=== PATIENT | male | born 1950 | race Caucasian/White ===

== ENCOUNTER → 2018-02-06 07:56 | Outpatient (CLI) | payer OTHER, SELFPAY ==
--- NOTE | 2018-02-06 08:34 | RAD_ITS ---
STUDY: X-RAY - ORBITS REASON FOR EXAM: Male, 67 years old. This study is being performed as a clearance examination for exclusion of orbital metal, prior to the performance of an MRI examination. TECHNIQUE: 2 view(s) of the orbits were obtained. COMPARISON: None. FINDINGS: Normal bilateral orbits without a metallic orbital foreign body. Normal visualized facial bones. Normal paranasal sinuses. The soft tissue structures are unremarkable. RAD/Orbits for Foreign Body IMPRESSION: No demonstrated metallic orbital foreign body. The patient is cleared for an MRI examination. Electronically Signed: Sina Edouard MD at 8:54 EDT Tel [phone], Service support ,
--- NOTE | 2018-02-06 13:00 | MRI_ITS ---
STUDY: MRI BRAIN WITH AND WITHOUT CONTRAST REASON FOR EXAM: Male, 67 years old. Right arm weakness TECHNIQUE: Standardized multiplanar fat and water weighted pulse sequences were obtained. 8 ml of Gadavist contrast material was administered intravenously for the contrast portion of the examination. COMPARISON: None. FINDINGS: Normal size of the ventricles and extra-axial spaces for the patient's age. Minor periventricular white matter ischemic change without evidence for acute infarct. Normal bilateral basal ganglia. Normal thalami. There is no extra-axial fluid accumulation. Normal flow voids within the major intracranial circulation suggesting patency by spin echo criteria. Normal venous enhancement. There is no enhancing intra-axial or extra-axial abnormality. Normal sella turcica, pituitary gland, infundibular stalk, optic chiasm and hypothalamus. Normal tectal plate and pineal gland. Normal midbrain, tammy and medulla. Normal cerebellum. Normal basal cisterns. Normal bilateral temporal bones. Normal bilateral internal auditory canals. No demonstrated orbital abnormality, within the constraints of a routine brain study. Normal visualized paranasal sinuses. Normal calvarium and skull base. Normal visualized soft tissue structures. Normal visualized upper cervical spine. MRI/Brain W/WO Contrast IMPRESSION: Minor periventricular white matter ischemic changes without evidence for acute infarct. No enhancing lesions are noted following contrast demonstration. Electronically Signed: Benton Blackwell MD at 23:36 EDT , Service support ,
--- NOTE | 2018-02-06 13:30 | CT_ITS ---
STUDY: CTA NECK WITH CONTRAST REASON FOR EXAM: Male, 67 years old. Abnormal carotid ultrasound. History of hypertension and tonsillectomy. RADIATION DOSAGE (If Supplied By Facility): CTDIvol = ( ) mGy, DLP = ( ) mGycm TECHNIQUE: CT angiography with multi-detector data acquisition was performed from the aortic arch to the skull base following intravenous administration of 100 ml of Isovue-370 contrast. MIP images were reconstructed from the axial data set. Post-processing of the angiographic images was performed, with multiplanar reformation and 3D reconstruction. Individualized dose optimization techniques were used for this CT. COMPARISON: None. FINDINGS: AORTIC ARCH: There is ulcerated and irregular atherosclerotic plaque formation of the aortic arch without a hemodynamically significant stenosis. 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 There is a bovine origin of the great vessels with a common origin of the brachiocephalic and left common carotid artery. Normal origin of the left subclavian artery. RIGHT CAROTID ARTERIES: There is minor calcified atherosclerotic plaque formation of the common carotid artery, but without a hemodynamically significant stenosis. There is mild to moderate atherosclerotic plaque formation without significant narrowing of the right carotid bulb. There is partially calcified atherosclerotic plaque formation of the origin of the right internal carotid artery with an estimated stenosis of greater than 70%. Above this, the visualized cervical portion of the right internal carotid artery is widely patent. There is mild atherosclerotic plaque formation of the origin of the right external carotid artery with less than 25% cross sectional diameter stenosis. LEFT CAROTID ARTERIES: There is minor calcified atherosclerotic plaque formation of the common carotid artery, but without a hemodynamically significant stenosis. There is mild atherosclerotic plaque formation with minimal narrowing of the left carotid bulb. There is irregular, ulcerated, partially calcified atherosclerotic plaque formation of the origin of the left internal carotid artery with an estimated stenosis of 50-69% stenosis. Above this level, the visualized cervical portion of the left internal carotid artery is widely patent. Normal origin of the left external carotid artery (ECA). VERTEBRAL ARTERIES: There is minor narrowing at the takeoff of the right vertebral artery (series 217 image 28). Mild to moderate smooth narrowing of the origin of the left vertebral artery (series 218 image 26). The cervical segments are otherwise widely patent. CT/CTA Neck W/WO Contrast IMPRESSION: 1. Partially calcified atherosclerotic plaque at the right internal carotid artery origin with greater than 70% stenosis. 2. Partially calcified, irregular, ulcerated plaquing at the left internal carotid origin with 50-69% diameter stenosis. 3. Mild ostial narrowing of the otherwise widely patent bilateral vertebral arteries. Electronically Signed: Varinder Sultana MD at 13:58 EDT , Service support ,
--- NOTE | 2018-02-07 11:47 | LEAS ---
Arterial Study - Arterial Study Arterial Study: Record number: [id number] next Date of scan 02/06/[address] Friend History: Patient with claudication type symptoms Interpretation: Right lower extremity with pulsatile waveform noted from the thigh through the calf ankle up through the digits severe peaked waveforms noted from the low thigh and the calf. Duplex does show triphasic flow at the ankle with an DANI 1.0 to the posterior tibial 0.91 and the dorsalis pedis next Left lower extremity with pulsatile flow from the thigh down to the calf ankle digits again peaked waveforms noted throughout the low thigh and calf duplex does show triphasic flow at the vessels with an DANI 1.16 in the posterior tibial and 1.1 and the dorsalis pedis Impression: 1. No evidence of significant arterial occlusive disease at rest of the right lower extremity with an DANI 1.02 and triphasic flow 2. No evidence of significant arterial occlusive disease at rest of the left lower extremity with DANI 1.16 and triphasic flow
== END ==
PROVIDERS: Family Provider Family Medicine; PCP Family Medicine; Visit Provider Surgery Vascular Surgery
DX: I70.213 Atherosclerosis of native arteries of extremities with intermittent claudication, bilateral legs (principal); I65.23 Occlusion and stenosis of bilateral carotid arteries; Z86.73 Personal history of transient ischemic attack (TIA), and cerebral infarction without residual deficits
CPT/HCPCS: 70030; 70498; 70553; 93923; A9585; Q9967; A4216

== ENCOUNTER → 2018-03-08 09:36 | Outpatient (CLI) | payer OTHER, SELFPAY ==
--- NOTE | 2018-03-08 09:36 | DT_ITS ---
This patient was seen during an EMR downtime March 05, 2018 - March 12, 2018. This patient may have a combination of paper and electronic documentation or all paper documentation. All documentation is viewable within the e-chart portion of [facility] for each patient visit.
--- NOTE | 2018-03-08 09:39 | STE_ITS ---
Reason For Study: EMBOLI/PRE OP Stress Results Protocol: Edgardo Protocol Maximum Predicted HR: 154 bpm Target HR: 131 bpm% Max imum Predicted HR: 100 % DurationHeart Rate Stage (mm:ss) (bpm) BP BASELINE 88 140/90 STAGE 1 3:00 13 1 168/88 STAGE 2 2:01 15 4 168/98 RECOVERY 108 160/8 8 Stress Duration: 5:01 mm:ss Maximum Stress HR: 154 bpm Baseline Echocardiogram Findings The estimated ejection fraction is 65 %. Stress Echo Wall motion Data Resting WMIntermediate WMStress WM Resting Wall Motion Wall Motion Stress Ejection Fraction 65 %. Ejection Fraction 75 %. EKG Data The baseline ECG displays normal sinus rhythm. NSR, WITH NO ISCHEMIA. Patient Safety REASON FOR TERMINATION: LEG PAIN/DYSPNEA. Interpretation Summary 1) NORMAL ADEQUATE TREADMILL ECHO 2) NO ARRYTHMIA 3) NORMAL BLOOD RESPONSE TO EXERCISE 4) AVERAGE EXERCISE CAPACITY FOR AGE 5) FINAL LVEF=75% The estimated ejection fraction is 65 %. Ordering Physician: Artie Horner MD Referring Physician: Artie Horner MD Performed By: Ortiz Jarrett RCS
== END ==
PROVIDERS: Family Provider Family Medicine; PCP Family Medicine; Visit Provider Internal Medicine Cardiovascular Disease
DX: Z01.810 Encounter for preprocedural cardiovascular examination (principal); I65.23 Occlusion and stenosis of bilateral carotid arteries; Z86.73 Personal history of transient ischemic attack (TIA), and cerebral infarction without residual deficits; F17.200 Nicotine dependence, unspecified, uncomplicated; I10 Essential (primary) hypertension; E78.1 Pure hyperglyceridemia
CPT/HCPCS: 93017; 93350

== ENCOUNTER → 2018-03-26 08:53 | Outpatient (CLI) | payer OTHER, SELFPAY ==
--- NOTE | 2018-03-26 08:53 | ECHOD_ITS ---
Reason For Study: PRE-OP, EMBOLI Procedure This was a 2D Doppler, Color Flow transthoracic echocardiogram. Exam performed in department. Left Ventricle Normal size and thickness. The estimated ejection fraction is 65 %. Stage 1 diastolic dysfunction. No regional wall motion abnormalities noted. Right Ventricle Normal size and thickness. A moderator band is seen in the right ventricle. Normal systolic function. Atria Normal left atrium. Normal right atrium. Normal atrial septum. Mitral Valve The mitral valve is structurally normal. No prolapse or stenosis seen. Mild (1+) mitral valve insufficiency. Tricuspid Valve Normal tricuspid valve. Unable to estimate RV systolic pressure due to inadequate jet, pulmonary artery pressure probably normal. Aortic Valve Normal aortic valve. Trisinus/trileaflet aortic valve. Pulmonic Valve Normal pulmonic valve. Trivial eccentric pulmonic valve insufficiency. Great Vessels Normal aortic root. Normal arch. Normal inferior vena cava. Inferior vena cava collapse with sniff. Pericardium/Pleural No pericardial effusion. MMode/2D Measurements & Calculations LVIDd: 4.9 cm IVSd: 0.95 cm Ao root diam: 3.6 cm LVIDs: 3.3 cm LVPWd: 1.0 cm LA dimension: 3.5 cm RVDd: 2.7 cm FS: 31.2 % LAV(MOD-bp): 34.9 ml LVAd ap4: 27.2 cm2 SV(MOD-sp4): 40.2 ml LAV(MOD-bp) Indexed: 18.6 ml/m2 EDV(MOD-sp4): 71.9 ml LAV(MOD-sp2): 36.9 ml EDV(sp4-el): 75.1 ml LAV(MOD-sp4): 31.7 ml LVAs ap4: 15.9 cm2 ESV(MOD-sp4): 31.7 ml ESV(sp4-el): 31.3 ml EF(MOD-sp4): 55.9 % EF(sp4-el): 58.4 % SV(sp4-el): 43.8 ml LA A4 area: 13.8 cm2 RA A4 area: 14.8 cm2 Time Measurements MV dec time: 0.22 sec Doppler Measurements & Calculations MV E max lane: 84.9 cm/sec Lat Peak E' Lane: 8.1 cm/sec Med Peak E' Lane: 6.8 cm/sec MV A max lane: 99.1 cm/sec E/E' lat: 10.5 E/E' med: 12.5 MV E/A: 0.86 Ao V2 max: 105.0 cm/sec LV V1 max: 98.9 cm/sec PA V2 max: 93.9 cm/sec Ao max P.4 mmHg LV V1 max P.9 mmHg Interpretation Summary The estimated ejection fraction is 65 %. Stage 1 diastolic dysfunction. Mild (1+) mitral valve insufficiency. Unable to estimate RV systolic pressure due to inadequate jet, pulmonary artery pressure probably normal. There is no comparison study available. Ordering Physician: Artie Horner Referring Physician: IRENE AGUILAR Performed By: Toña Schmitt RDCS
== END ==
PROVIDERS: Family Provider Family Medicine; PCP Family Medicine; Visit Provider Internal Medicine Cardiovascular Disease
DX: Z01.810 Encounter for preprocedural cardiovascular examination (principal); E78.1 Pure hyperglyceridemia; F17.200 Nicotine dependence, unspecified, uncomplicated; I65.23 Occlusion and stenosis of bilateral carotid arteries; I10 Essential (primary) hypertension; Z86.73 Personal history of transient ischemic attack (TIA), and cerebral infarction without residual deficits
CPT/HCPCS: 93306

== ENCOUNTER → 2018-11-01 12:56 | Outpatient (CLI) | payer OTHER, SELFPAY ==
[2018-10-15 16:05] VITALS: BMI 28.3
--- NOTE | 2018-11-01 12:59 | CDU_ITS ---
Reason For Study: Carotid stenosis Rt. Velocities/BP Lt. Velocities/BP Prox CCA 70.9/24.6 cm/sec. Prox CCA 75.5/28.7 cm/sec. Mid CCA 75.6/28.1 cm/sec. Mid CCA 83.3/32.2 cm/sec. Dist CCA 71.5/25.2 cm/sec. Dist CCA 63.9/25.2 cm/sec. Prox ICA 355/138 cm/sec. Prox ICA 61.0/25.8 cm/sec. Mid ICA 83.8/28.1 cm/sec. Mid ICA 83.3/38.7 cm/sec. Dist ICA 76.8/25.8 cm/sec. Dist ICA 74.5/34.0 cm/sec. Rt. ICA/CCA = 4.7. Lt. ICA/CCA = 1.0. Prox ECA 113.0/28.7 cm/sec. Prox ECA 79.7/23.5 cm/sec. Rt. Vert. 39.3/18.2 cm/sec. Lt. Vert. 43.4/19.3 cm/sec. Right Extracranial There is heterogeneous, irregular atherosclerotic plaque noted in the right common carotid artery. There is heterogeneous, irregular atherosclerotic plaque noted in the right internal carotid artery. There is heterogeneous, irregular atherosclerotic plaque noted in the right external carotid artery. Antegrade flow is noted in the right vertebral artery. Left Extracranial There is heterogeneous, irregular atherosclerotic plaque noted in the left common carotid artery. There is homogeneous, smooth atherosclerotic plaque noted in the left internal carotid artery. There is intimal thickening but no significant atherosclerotic plaque noted in the left external carotid artery. Antegrade flow is noted in the left vertebral artery. Procedure Carotid Duplex [id number]. Exam performed in department. Interpretation Summary Severe (>70%) stenosis right extracranial internal carotid. Mild (<50%) stenosis left extracranial internal carotid. Flow within the vertebral arteries is antegrade bilaterally. Ordering Physician: Kal Friend Referring Physician: Jamal Lopez MD Performed By: Shannan Boyd RVT
== END ==
PROVIDERS: Family Provider Family Medicine; PCP Family Medicine; Referring Provider Surgery Vascular Surgery; Visit Provider Surgery Vascular Surgery
DX: I65.23 Occlusion and stenosis of bilateral carotid arteries (principal)
CPT/HCPCS: 93880

== ENCOUNTER → 2019-08-30 13:51 | Outpatient (CLI) | payer OTHER, SELFPAY ==
[2019-05-13 15:43] VITALS: BMI 27.6
--- NOTE | 2019-08-30 13:53 | CDU_ITS ---
Reason For Study: CAROLE Rt. Velocities/BP Lt. Velocities/BP Prox CCA 87/28 cm/sec. Prox CCA 93/38 cm/sec. Mid CCA 75/23 cm/sec. Mid CCA 61/25 cm/sec. Dist CCA 76/27 cm/sec. Dist CCA 61/26 cm/sec. Prox ICA 51/19 cm/sec. Prox ICA 50/20 cm/sec. Mid ICA 59/22 cm/sec. Mid ICA 71/34 cm/sec. Dist ICA 68/28 cm/sec. Dist ICA 72/30 cm/sec. Rt. ICA/CCA = .8. Lt. ICA/CCA = .8. Prox ECA 128/28 cm/sec. Prox ECA 93/23 cm/sec. Rt. Vert. 49/21 cm/sec. Lt. Vert. 35/14 cm/sec. Right Extracranial There is heterogeneous, irregular atherosclerotic plaque noted in the right common carotid artery. There is heterogeneous, smooth atherosclerotic plaque noted in the right internal carotid artery. s/p Rt . There is homogeneous, smooth atherosclerotic plaque noted in the right external carotid artery. Antegrade flow is noted in the right vertebral artery. Left Extracranial There is heterogeneous, irregular atherosclerotic plaque noted in the left common carotid artery. There is heterogeneous, smooth atherosclerotic plaque noted in the left common carotid artery. There is heterogeneous, smooth atherosclerotic plaque noted in the left internal carotid artery. s/p Left . There is homogeneous, smooth atherosclerotic plaque noted in the left external carotid artery. Antegrade flow is noted in the left vertebral artery. Procedure Carotid Duplex [id number]. Exam performed in department. Interpretation Summary Mild (<50%) stenosis right extracranial internal carotid. Mild (<50%) stenosis left extracranial internal carotid. Flow within the vertebral arteries is antegrade bilaterally. Ordering Physician: Kal Friend Referring Physician: IRENE AGUILAR Performed By: Kamla Bee, MELODIE, RVT
== END ==
PROVIDERS: Family Provider Family Medicine; PCP Family Medicine; Referring Provider Surgery Vascular Surgery; Visit Provider Surgery Vascular Surgery
DX: I65.23 Occlusion and stenosis of bilateral carotid arteries (principal); Q89.9 Congenital malformation, unspecified; I10 Essential (primary) hypertension; Z86.73 Personal history of transient ischemic attack (TIA), and cerebral infarction without residual deficits
CPT/HCPCS: 93880

== ENCOUNTER → 2020-11-02 09:19 | Outpatient (CLI) | payer OTHER, SELFPAY ==
[2019-11-14 15:43] VITALS: BMI 28.5
--- NOTE | 2020-11-02 09:25 | CDU_ITS ---
Reason For Study: CAROTID STENOSIS Rt. Velocities/BP Lt. Velocities/BP Prox CCA 102/32 cm/sec. Prox CCA 91/34 cm/sec. Mid CCA 80/25 cm/sec. Mid CCA 87/35 cm/sec. Dist CCA 90/21 cm/sec. Dist CCA 74/30 cm/sec. Prox ICA 57/12 cm/sec. Prox ICA 60/18 cm/sec. Mid ICA 64/29 cm/sec. Mid ICA 68/30 cm/sec. Dist ICA 56/23 cm/sec. Dist ICA 68/34 cm/sec. Rt. ICA/CCA = .7. Lt. ICA/CCA = .8. Prox ECA 110/29 cm/sec. Prox ECA 77/21 cm/sec. Rt. Vert. 42/13 cm/sec. Lt. Vert. 27/10 cm/sec. Right Extracranial There is heterogeneous, irregular atherosclerotic plaque noted in the right common carotid artery. There is heterogeneous, smooth atherosclerotic plaque noted in the right internal carotid artery. There is homogeneous, smooth atherosclerotic plaque noted in the right external carotid artery. Antegrade flow is noted in the right vertebral artery. Left Extracranial There is heterogeneous, irregular atherosclerotic plaque noted in the left common carotid artery. There is heterogeneous, irregular atherosclerotic plaque noted in the left internal carotid artery. There is homogeneous, smooth atherosclerotic plaque noted in the left external carotid artery. Antegrade flow is noted in the left vertebral artery. Procedure Carotid Duplex [id number]. Exam performed in department. Interpretation Summary Mild (<50%) stenosis right extracranial internal carotid. Mild (<50%) stenosis left extracranial internal carotid. Flow within the vertebral arteries is antegrade bilaterally. Ordering Physician: Kal Friend Referring Physician: Kal Friend Performed By: Kamla Bee, RDCS, RVT
== END ==
PROVIDERS: PCP Family Medicine; Referring Provider Surgery Vascular Surgery; Visit Provider Surgery Vascular Surgery
DX: I65.23 Occlusion and stenosis of bilateral carotid arteries (principal); Z86.73 Personal history of transient ischemic attack (TIA), and cerebral infarction without residual deficits
CPT/HCPCS: 93880

== ENCOUNTER → 2021-01-27 15:32 | Outpatient (CLI) | payer OTHER, SELFPAY ==
[2021-01-27 14:58] VITALS: BMI 28.5
[2021-01-27 17:44] LABS: AST(SGOT) 21 U/L (15-37); Alanine Aminotransfer ALT/SGPT 29 U/L (16-61); Albumin, Serum 3.8 g/dL (3.2-5.0); Alkaline Phosphatase 76 U/L (45-117); Cholesterol 135 mg/dL (200); Globulin 3.6 g/dL (2.2-4.2); High Density Lipoprotein 38 mg/dL; Protein, Total 7.4 g/dL (6.4-8.2); Triglycerides 267 mg/dL; Very Low Density Lipoprotein 53 mg/dL (5-40)
== END ==
PROVIDERS: Physician Assistant Medical; PCP Family Medicine; Referring Provider Internal Medicine Cardiovascular Disease; Visit Provider Internal Medicine Cardiovascular Disease
DX: E78.1 Pure hyperglyceridemia (principal); I10 Essential (primary) hypertension; I65.23 Occlusion and stenosis of bilateral carotid arteries
CPT/HCPCS: 36415; 80061; 80076

== ENCOUNTER → 2022-04-15 | Outpatient (CLI) | payer OTHER, SELFPAY ==
--- NOTE | 2022-04-15 10:04 | CDU_ITS ---
Reason For Study: CAROTID STENOSIS Rt. Velocities/BP Lt. Velocities/BP Prox CCA 76.0/22.6 cm/sec. Prox CCA 61.3/24.7 cm/sec. Mid CCA 77.3/22.6 cm/sec. Mid CCA 46.5/18.6 cm/sec. Dist CCA 72.1/20.0 cm/sec. Dist CCA 53.5/17.7 cm/sec. Prox ICA 53.1/15.7 cm/sec. Prox ICA 48.5/15.4 cm/sec. Mid ICA 52.0/15.7 cm/sec. Mid ICA 55.1/24.8 cm/sec. Dist ICA 61.9/26.7 cm/sec. Dist ICA 69.2/28.6 cm/sec. Rt. ICA/CCA = 1.23. Lt. ICA/CCA = 1.30. Prox ECA 72.1/18.6 cm/sec. Prox ECA 93.8/25.8 cm/sec. Rt. Vert. 31.7/11.6 cm/sec. Lt. Vert. 31.5/10.7 cm/sec. Right Extracranial There is heterogeneous, irregular atherosclerotic plaque noted in the right common carotid artery. There is heterogeneous, irregular atherosclerotic plaque noted in the right internal carotid artery. There is heterogeneous, smooth atherosclerotic plaque noted in the right external carotid artery. Antegrade flow is noted in the right vertebral artery. Left Extracranial There is heterogeneous, irregular atherosclerotic plaque noted in the left common carotid artery. There is heterogeneous, irregular atherosclerotic plaque noted in the left internal carotid artery. There is heterogeneous, irregular atherosclerotic plaque noted in the left external carotid artery. Antegrade flow is noted in the left vertebral artery. Procedure Carotid Duplex [id number]. This is a Carotid Duplex examination using B-mode, color flow and specral Doppler. The exam was of adequate technical quality. Exam performed in department. VL/Carotid Duplex Ultrasound Interpretation Summary Mild (<50%) stenosis right extracranial internal carotid. Normal left extracran ial internal carotid. Flow within the vertebral arteries is antegrade bilaterally. Ordering Physician: Jamal Lopez MD Referring Physician: Kal Friend Performed By: Elroy Meeks
== END | disposition home or self-care (01) ==
PROVIDERS: PCP Family Medicine; Referring Provider Surgery Vascular Surgery; Visit Provider Surgery Vascular Surgery
DX: I65.23 Occlusion and stenosis of bilateral carotid arteries (principal); Z86.73 Personal history of transient ischemic attack (TIA), and cerebral infarction without residual deficits
CPT/HCPCS: 93880